=== PATIENT | female | born 2000 | race Two or more races ===

== ENCOUNTER 2023-04-09 18:06 | Emergency (ER) | payer OTHER ==
[~2023-04-09] VITALS: Ht 157.5 cm; Wt 75.9 kg
[2023-04-09 18:07] VITALS: TEMP 98.4
[2023-04-09] MEDS ORDERED: LIDOCAINE 1% 10 ML VIAL ID ONE (18:15)
[2023-04-09] MEDS ORDERED: PERTUSS(ACELL),DIPH,TET VAC/PF 0.5 ML SYRINGE IM. ONE (18:15)
[2023-04-09] MEDS ORDERED: BACITRACIN 0.9 GM PACKET OINTMENT TP ONE (19:15)
[2023-04-09 20:45] VITALS: BP 118/74; PULSE 84; RESP 17
== END 2023-04-09 21:27 | disposition home or self-care (01) ==
LOC: EMS 18:08
DX: S61.211A Laceration without foreign body of left index finger without damage to nail, initial encounter (principal); W26.8XXA Contact with other sharp object(s), not elsewhere classified, initial encounter; Y93.89 Activity, other specified; Y92.89 Other specified places as the place of occurrence of the external cause; Y99.8 Other external cause status
CPT/HCPCS: 99283; 90715; 90471; 12001; J3490

== ENCOUNTER 2023-04-12 18:01 | Emergency (ER) | payer OTHER ==
[~2023-04-12] VITALS: Ht 162.6 cm; Wt 76.4 kg
[2023-04-12 18:04] VITALS: BP 106/58; PULSE 73; RESP 16; TEMP 98.4
== END 2023-04-12 19:08 | disposition home or self-care (01) ==
LOC: EMS 18:03
DX: S61.211D Laceration without foreign body of left index finger without damage to nail, subsequent encounter (principal); Z48.02 Encounter for removal of sutures; X58.XXXD Exposure to other specified factors, subsequent encounter
CPT/HCPCS: 99282; Z7502